=== PATIENT | female | born 1975 | race American Indian/Alaskan Native ===

== ENCOUNTER 2018-03-10 12:25 | Emergency (ER) | payer OTHER ==
--- NOTE | 2018-03-10 13:42 | EDM.PDOCBH ---
ED HPI GENERAL MEDICAL PROBLEM - General Chief Complaint: Behavioral/Psych Stated Complaint: EVAL? Time Seen by Provider: 03/10/18 12:50 Source of Information: Reports: Patient, Family History Limitations: Reports: Altered Mental Status - History of Present Illness INITIAL COMMENTS - FREE TEXT/NARRATIVE: 42-year-old female who has been up in this area from the [facility] for the last month, living with some relatives and they are concerned about her behavior being unusual for the past several days and uncomfortable having her in the house. She isn't threatening anyone, she isn't suicidal or threatening self-harm in any way. Her behavior is just sporadic and agitated and they are uncomfortable having her in the house and thinks she needs to be on a "72 hour hold". The patient herself has no complaints. 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: Reports: Social & Family History - Tobacco Use Smoking Status *Q: Current Every Day Smoker Years of Tobacco use: 25 Packs/Tins Daily: 0.5 Used Tobacco, but Quit: No - Caffeine Use Caffeine Use: Reports: Coffee, Soda - Recreational Drug Use Recreational Drug Use: No ED ROS GENERAL - Review of Systems Review Of Systems: See Below Constitutional: Denies: Fever Respiratory: Denies: Shortness of Breath Cardiovascular: Denies: Chest Pain GI/Abdominal: Denies: Nausea, Vomiting Neurological: Denies: Headache ED EXAM, BEHAVIORAL HEALTH - Physical Exam Exam: See Below Exam Limited By: No Limitations General Appearance: Alert, No Apparent Distress Eye Exam: Bilateral Eye: EOMI Respiratory/Chest: No Respiratory Distress Cardiovascular: Regular Rate, Rhythm Neurological: Alert, Oriented x 3 Psychiatric: Restless Skin Exam: Warm, Dry COURSE, BEHAVIORAL HEALTH COMP - Course Vital Signs: Last Vital Signs Temp 99.2 F 03/10/18 13:10 Pulse 95 03/10/18 13:10 Resp 18 03/10/18 13:10 BP 161/116 H 03/10/18 13:10 Pulse Ox 98 03/10/18 13:10 Re-Assessment/Re-Exam: After discussing the situation with the patient, we asked for urine drug screen. She refused. I do not have any medical reason to force her to provide a drug screen. She has a niece that lives nearby the hospital that she is going to go and visit and stay with her for a few days until she can get back to the [facility]. Departure - Departure Time of Disposition: 14:19 Disposition: Home, Self-Care 01 Clinical Impression: Mental status change - Discharge Information Referrals: PCP,None [Primary Care Provider] - Forms: ED Department Discharge Care Plan Goals: Avoid any illicit drug use, and return if you feel you are worsening or have other concerns.
== END 2018-03-10 14:19 | disposition home or self-care (01) ==
LOC: JP.ED 12:25
DX: R41.82 Altered mental status, unspecified (principal); F17.210 Nicotine dependence, cigarettes, uncomplicated; Z88.1 Allergy status to other antibiotic agents
CPT/HCPCS: 99282; 99285